=== PATIENT | male | born 1965 | race Two or more races ===

== ENCOUNTER 2017-04-04 16:08 | Emergency (ER) | payer OTHER ==
[~2017-04-04] VITALS: Ht 175.3 cm; Wt 87.1 kg
--- NOTE | 2017-04-04 16:28 | EKG ---
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
--- NOTE | 2017-04-04 16:31 | ED.ADGEN ---
Adult General Chief Complaint Chief Complaint: OTHER COMPLAINTS HPI HPI Patient is a 51 year old man, history of type 2 diabetes mellitus, controlled with oral euglycemic's, which which has been treated this way for about 20 years , has a history of neuropathy in his feet, denies any history of known heart disease, who presents the emergency department with a report of an abnormal ECG and some dizziness at his primary care provider's office. Patient was being seen in the office for a routine checkup, states that he had an EKG were performed that was abnormal, but states when he stood up from the table he had a few moments of dizziness, but denies any other episodes of dizziness, no vertiginous symptoms, no near syncope, also reports no chest pain or shortness breath. He states that he is able to go up but a flight of stairs or so without any difficulty, states that when he "exerts myself really hard" he does become short of breath but states "I am out of shape". Patient denies any swelling extremities, any recent travel or surgery, history of DVT, any missed doses of medication medication changes, states he does chew tobacco but denies any drug or alcohol use. No injuries, denies any symptoms presently. 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 He has a strong family history of cardiac disease, states his father of a heart attack at age 55. Heart disease also present in his mother and grandmother, but they both had other medical problems as well. He just has limited information regarding his father and his father's side of the family. Patient's primary care provider is Dr. Soliz, who did contact the emergency department to inform me of the patient's arrival. Review of Systems Review of Systems Constitutional: Denies fever or chills. Episode of dizziness when standing up after lying flat for about 20 minutes. Eyes: Denies change in visual acuity. [] HENT: Denies nasal congestion or sore throat. [] Respiratory: Denies cough or shortness of breath. [] Cardiovascular: Denies chest pain or edema. [] GI: Denies abdominal pain, nausea, vomiting, bloody stools or diarrhea. [] : Denies dysuria. [] Musculoskeletal: Denies back pain or joint pain. [] Integument: Denies rash. [] Neurologic: Denies headache, focal weakness or sensory changes. [] Endocrine: Denies polyuria or polydipsia. [] Lymphatic: Denies swollen glands. [] Psychiatric: Denies depression or anxiety. [] Allergies Allergies Allergies Coded Allergies Type Severity Reaction Last Updated Verified bee venom protein (honey bee) Allergy Severe anaphylaxis 04/04/17 Yes Physical Exam Physical Exam Constitutional: Well developed, well nourished, no acute distress, non-toxic appearance. [] HENT: Normocephalic, atraumatic, bilateral external ears normal, oropharynx moist, no oral exudates, nose normal. [] Eyes: PERRLA, EOMI, conjunctiva normal, no discharge. [] Neck: Normal range of motion, no tenderness, supple, no stridor. [] Cardiovascular:Heart rate regular rhythm, no murmur, S1, S2, no rubs or gallops. [] Lungs & Thorax: Bilateral breath sounds clear to auscultation, no wheezing, rhonchi, rales. No chest wall tenderness or crepitus. [] Abdomen: Bowel sounds normal, soft, no tenderness, no rebound, rigidity, no guarding, no masses, no pulsatile masses. [] Skin: Warm, dry, no erythema, no rash. [] Back: No tenderness, no CVA tenderness. [] Extremities: No tenderness, no cyanosis, no clubbing, ROM intact, no edema. Negative Homans sign. [] Neurologic: Alert and oriented X 3, normal motor function, normal sensory function, no focal deficits noted. [] Psychologic: Affect normal, judgement normal, mood normal. [] Current Patient Data Vital Signs Vital Signs Date Time Temp Pulse Resp B/P (MAP) Pulse Ox O2 Delivery O2 Flow Rate FiO2 04/04/17 18:03 85 20 120/83 (95) 95 Room Air 04/04/17 16:20 99.2 99.2 Lab Values Laboratory Tests Test 04/04/17 16:28 04/04/17 17:08 White Blood Count 7.7 x10^3/uL (4.0-11.0) Red Blood Count 5.36 x10^6/uL (4.30-5.70) Hemoglobin 16.1 g/dL (13.0-17.5) Hematocrit 47.6 % (39.0-53.0) Mean Corpuscular Volume 89 fL (79-100) Mean Corpuscular Hemoglobin 30 pg (25-35) Mean Corpuscular Hemoglobin Concent 34 g/dL (31-37) Red Cell Distribution Width 13.0 % (11.5-14.5) Platelet Count 230 x10^3/uL (140-400) Neutrophils (%) (Auto) 63 % (31-73) Lymphocytes (%) (Auto) 29 % (24-48) Monocytes (%) (Auto) 7 % (0-9) Eosinophils (%) (Auto) 1 % (0-3) Basophils (%) (Auto) 1 % (0-3) Neutrophils # (Auto) 4.8 x10^3uL (1.8-7.7) Lymphocytes # (Auto) 2.2 x10^3/uL (1.0-4.8) Monocytes # (Auto) 0.6 x10^3/uL (0.0-1.1) Eosinophils # (Auto) 0.1 x10^3/uL (0.0-0.7) Basophils # (Auto) 0.1 x10^3/uL (0.0-0.2) Sodium Level 142 mmol/L (136-145) Potassium Level 3.9 mmol/L (3.5-5.1) Chloride Level 104 mmol/L (98-107) Carbon Dioxide Level 28 mmol/L (21-32) Anion Gap 10 (6-14) Blood Urea Nitrogen 16 mg/dL (8-26) Creatinine 1.0 mg/dL (0.7-1.3) Estimated GFR (Cockcroft-Gault) 79.4 Glucose Level 114 mg/dL (70-99) H Calcium Level 9.4 mg/dL (8.5-10.1) Total Bilirubin 0.4 mg/dL (0.2-1.0) Direct Bilirubin 0.1 mg/dL (0.0-0.2) Aspartate Amino Transferase (AST) 23 U/L (15-37) Alanine Aminotransferase (ALT) 24 U/L (16-63) Alkaline Phosphatase 83 U/L (46-116) Troponin I Quantitative < 0.017 ng/mL (0.000-0.055) OH-Xfm-O-Type Natriuretic Peptide 26 pg/mL (0-124) Total Protein 8.4 g/dL (6.4-8.2) H Albumin 4.3 g/dL (3.4-5.0) Lipase 171 U/L (73-393) Urine Color Yellow Urine Clarity Clear Urine pH 5.0 Urine Specific [place] >=1.030 Urine Protein Negative mg/dL (NEG-TRACE) Urine Glucose (UA) >=1000 mg/dL (NEG) Urine Ketones (Stick) Negative mg/dL (NEG) Urine Blood Negative (NEG) Urine Nitrite Negative (NEG) Urine Bilirubin Negative (NEG) Urine Urobilinogen Dipstick 0.2 mg/dL (0.2 mg/dL) Urine Leukocyte Esterase Negative (NEG) Urine RBC 0 /HPF (0-2) Urine WBC Occ /HPF (0-4) Urine Squamous Epithelial Cells Occ /LPF Urine Bacteria 0 /HPF (0-FEW) Urine Mucus Slight /LPF Urine Opiates Screen Neg (NEG) Urine Methadone Screen Neg (NEG) Urine Barbiturates Neg (NEG) Urine Phencyclidine Screen Neg (NEG) Urine Amphetamine/Methamphetamine Neg (NEG) Urine Benzodiazepines Screen Neg (NEG) Urine Cocaine Screen Neg (NEG) Urine Cannabinoids Screen Neg (NEG) Urine Ethyl Alcohol Neg (NEG) Laboratory Tests 04/04/17 16:28 Laboratory Tests 04/04/17 16:28 EKG EKG ECG: Performed at primary care provider's office: 1555: Sinus rhythm, heart rate 89 bpm, left axis deviation, bifascicular block noted, patient with T-wave inversions noted in the septal leads, QTc of 432, GA of 194, QRS of 138, abnormal ECG, does not meet STEMI criteria. As interpreted by me. No prior for comparison. EC: Sinus rhythm, heart rate 85 beats minute, left axis deviation, with left anterior fascicular block, ventricular block, contour normality is noted in the anterior septal leads as stated previously, no ST elevation, abnormal ECG , does not meet STEMI criteria. As interpreted by me. Radiology/Procedures Radiology/Procedures [][facility] [address] [place] [address] IMAGING REPORT Signed PATIENT: CASSIDY RASHEED ACCOUNT: [id number] : 1965 LOCATION: ER AGE: 51 SEX: M EXAM STATUS: REG ER ORD. PHYSICIAN: WENDY DORADO DO REASON: Dizziness PROCEDURE: CHEST PA & LATERAL EXAM: CHEST 2 VIEWS History: Dizziness COMPARISON: None available. TECHNIQUE: PA and lateral chest radiographs FINDINGS: The cardiomediastinal silhouette is within normal limits. The lungs are clear bilaterally. The costophrenic sulci are clear and well demarcated bilaterally. Probable old posterior lateral left sixth rib fracture. IMPRESSION: 1. No acute cardiac pulmonary findings. 2. Probable old posterolateral left sixth rib fracture. DICTATED and SIGNED BY: DARI CRANE MD DATE: 04/04/171653 CC: WENDY DORADO DO; PALLAVI SOLIZ MD ~ Course & Med Decision Making Course & Med Decision Making Pertinent Labs and Imaging studies reviewed. (See chart for details) Patient is well-appearing, denies any chest pain, shortness breath, or equivalent type symptoms. Initial ECG reveals bifascicular block, abnormal, repeat ECG performed 2 hours later, reveals no changes. Patient hasn't developed any symptoms in the ED. Troponin is negative, other laboratory studies are unremarkable. I did discuss these findings with Dr. Hendrickson of cardiology, as patient does have a strong family history and history of diabetes , he recommends a prompt follow-up in the outpatient setting, with a stress test performed in his office, however agrees that there is no indication based on the patient's presentation and evaluation in the ED that would warrant inpatient admission at this time. I did discuss this with patient and family at bedside, patient remains asymptomatic, and is agreeable with the plan to follow- up with a phone call tomorrow morning to Dr. Hendrickson's office to schedule prompt outpatient evaluation. We did discuss concerning symptoms that would prompt return to the emergency department, and plan for patient to restart daily baby aspirin. Patient voiced understanding and agreement with plan as stated. Patient discharged home in stable condition, with family, with plan as above. Dragon Disclaimer Dragon Disclaimer This electronic medical record was generated, in whole or in part, using a voice recognition dictation system. Departure Impression: Primary Impression: Abnormal ECG Disposition: HOME, SELF-CARE Condition: STABLE WENDY DORADO DO Apr 04, 2017 16:31
[2017-04-04] MEDS ORDERED: GLYB5TAB3 PO (16:41)
[2017-04-04] MEDS ORDERED: METF-620 PO (16:41)
[2017-04-04] MEDS ORDERED: CANA100T PO (16:41)
[2017-04-04] MEDS ORDERED: TRAZ100T12 PO (16:41)
[2017-04-04 16:45] LABS: BASO # 0.1 x10^3/uL (0.0-0.2); BASO % 1 % (0-3); EOS % 1 % (0-3); HEMATOCRIT 47.6 % (39.0-53.0); HEMOGLOBIN 16.1 g/dL (13.0-17.5); LYMPH # 2.2 x10^3/uL (1.0-4.8); LYMPH % 29 % (24-48); MEAN CORPUSCULAR HEMOGLOBIN 30 pg (25-35); MEAN CORPUSCULAR HGB CONC 34 g/dL (31-37); MEAN CORPUSCULAR VOLUME 89 fL (79-100); MONO % 7 % (0-9); NEUT % 63 % (31-73); PLATELET COUNT 230 x10^3/uL (140-400); RED BLOOD COUNT 5.36 x10^6/uL (4.30-5.70); WHITE BLOOD COUNT 7.7 x10^3/uL (4.0-11.0)
--- NOTE | 2017-04-04 16:57 | RAD ---
EXAM: CHEST 2 VIEWS History: Dizziness COMPARISON: None available. TECHNIQUE: PA and lateral chest radiographs FINDINGS: The cardiomediastinal silhouette is within normal limits. The lungs are clear bilaterally. The costophrenic sulci are clear and well demarcated bilaterally. Probable old posterior lateral left sixth rib fracture. IMPRESSION: 1. No acute cardiac pulmonary findings. 2. Probable old posterolateral left sixth rib fracture.
[2017-04-04 17:12] LABS: CALCIUM 9.4 mg/dL (8.5-10.1); GFR 79.4; POTASSIUM 3.9 mmol/L (3.5-5.1)
[2017-04-04 17:18] LABS: ALBUMIN 4.3 g/dL (3.4-5.0); DIRECT BILIRUBIN 0.1 mg/dL (0.0-0.2); TOTAL BILIRUBIN 0.4 mg/dL (0.2-1.0); TOTAL PROTEIN 8.4 g/dL (6.4-8.2)
[2017-04-04 17:20] LABS: BILIRUBIN,URINE NEGATIVE (NEG); GLUCOSE,URINE >=1000 mg/dL (NEG); NITRITE,URINE NEGATIVE (NEG); PROTEIN,URINE NEGATIVE (NEG-TRACE); UROBILINOGEN,URINE 0.2 mg/dL (0.2 mg/dL)
[2017-04-04 17:25] LABS: BARBITURATES NEG (NEG); BENZODIAZEPINES NEG (NEG); CANNABINOIDS NEG (NEG); COCAINE NEG (NEG); METHADONE NEG (NEG); OPIATES NEG (NEG); PHENCYCLIDINE NEG (NEG)
[2017-04-04 17:35] LABS: BACTERIA,URINE 0 /HPF (0-FEW); RBC,URINE 0 /HPF (0-2); SQUAMOUS EPITHELIAL CELL,UR OCC /LPF; WBC,URINE OCC /HPF (0-4)
[2017-04-04 18:03] VITALS: BP 120/83
--- NOTE | 2017-04-04 18:09 | EKG ---
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
== END 2017-04-04 18:12 | disposition home or self-care (01) ==
LOC: ER 16:08
DX: R94.31 Abnormal electrocardiogram [ECG] [EKG] (principal); R42 Dizziness and giddiness; R06.02 Shortness of breath; E11.40 Type 2 diabetes mellitus with diabetic neuropathy, unspecified; Z91.030 Bee allergy status
CPT/HCPCS: 36415; 71020; 80048; 80076; 80305; 80320; 81001; 83690; 83880; 84484; 85027; 93005; G0481; 99285-25

== ENCOUNTER → 2017-04-14 | Outpatient (CLI) | payer OTHER ==
[2017-04-04 18:03] VITALS: BP 120/83
[~2017-04-14] MED LIST: CANA100T PO; GLYB5TAB3 PO; METF-620 PO; TRAZ100T12 PO
--- NOTE | 2017-04-15 13:03 | CARD ---
APPROVED REPORT EXAM: Two-dimensional and M-mode echocardiogram with Doppler and color Doppler. Other Information Quality : GoodHR: 72bpm Rhythm : NSR INDICATION Fatigue, Uncontrolled hypertension, Family hx. of LA RISK FACTORS Diabetes 2D DIMENSIONS RVDd3.1 (2.9-3.5cm)Left Atrium(2D)3.4 (1.6-4.0cm) IVSd0.7 (0.7-1.1cm)Aortic Root(2D)4.0 (2.0-3.7cm) LVDd5.0 (3.9-5.9cm)LVOT Diameter2.5 (1.8-2.4cm) PWd0.8 (0.7-1.1cm)LVDs3.4 (2.5-4.0cm) FS (%) 30.8 %SV67.2 ml LVEF(%)50.0 (>50%) Aortic Valve AoV Peak Gunner.86.7cm/sAoV VTI19.2cm AO Peak GR.3.0mmHgLVOT Peak Gunner.75.5cm/s AO Mean GR.2mmHgAVA (VMAX)4.42cm2 Mitral Valve MV E Quligkwq40.4cm/sMV E Peak Gr.1mmHg MV DECEL [id number] A Ybjltqle25.3cm/s MV E Mean Gr.1mmHgE/A Ratio1.2 MV A [id number] Pulmonary Valve PV Peak Lliodpgm19.9cm/s Tricuspid Valve TR P. Mpnxwckd894qq/sTR Peak Gr.18mmHg Pulmonary Vein S1 Ltifntnt94.2cm/sD2 Fcbwsxix71.9cm/s PVa [id number] LEFT VENTRICLE The left ventricle is mildly dilated There is normal left ventricular wall thickness. The left ventri cular systolic function is low normal The Ejection Fraction is 50%. There is normal LV segmental wall motion. Transmitral Doppler flow pattern is Grade I-abnormal relaxation pattern. RIGHT VENTRICLE The right ventricle is normal size. There is normal right ventricular wall thickness. The right ventr icular systolic function is normal. ATRIA The left atrium size is normal. The right atrium size is normal. The interatrial septum is intact wit h no evidence for an atrial septal defect or patent foramen ovale as noted on 2-D or Doppler imaging. AORTIC VALVE The aortic valve is normal in structure and function. The aortic valve is trileaflet. Doppler and Col or Flow revealed no significant aortic regurgitation. There is no significant aortic valvular stenosi s. MITRAL VALVE The mitral valve is normal in structure and function. There is no evidence of mitral valve prolapse. There is no mitral valve stenosis. Doppler and Color Flow revealed no mitral valve regurgitation note d. TRICUSPID VALVE Doppler and Color Flow revealed trace tricuspid regurgitation. The pulmonary artery systolic pressure is estimated at 21 mmHg. There is no pulmonary hypertension. PULMONIC VALVE Doppler and Color Flow revealed mild pulmonic valvular regurgitation. There is no pulmonic valvular s tenosis. GREAT VESSELS The aortic root is mildly enlarged. The ascending aorta is mildly dilated. The pulmonary artery is no rmal. The IVC is normal in size and collapses >50% with inspiration. PERICARDIAL EFFUSION There is no evidence of significant pericardial effusion. Critical Notification Critical Value: No <Conclusion> Transmitral Doppler flow pattern is Grade I-abnormal relaxation pattern. The left atrium size is normal. The right atrium size is normal. The aortic valve is normal in structure and function. The aortic valve is trileaflet. The mitral valve is normal in structure and function. Doppler and Color Flow revealed trace tricuspid regurgitation. The pulmonary artery systolic pressure is estimated at 21 mmHg. There is no pulmonary hypertension. Doppler and Color Flow revealed mild pulmonic valvular regurgitation. The ascending aorta is mildly dilated. The aortic root is mildly enlarged. There is no evidence of significant pericardial effusion. The left ventricle is mildly dilated The left ventricular systolic function is low normal The Ejection Fraction is 50%.
== END | disposition home or self-care (01) ==
LOC: ECHO 08:11
PROVIDERS: ATTEND Internal Medicine Cardiovascular Disease
DX: I07.1 Rheumatic tricuspid insufficiency (principal); R53.83 Other fatigue; Z82.49 Family history of ischemic heart disease and other diseases of the circulatory system
CPT/HCPCS: 93306

== ENCOUNTER → 2018-08-09 | Outpatient (CLI) | payer OTHER ==
[~2018-08-09] MED LIST changes: -METF-620 PO; +METF10007 PO; +TRAZ-86 PO; -TRAZ100T12 PO
--- NOTE | 2018-08-09 10:54 | RAD ---
MR of the left shoulder Indication: Left shoulder pain after a fall 6 months ago. Technique: Standard multiplanar sequences are obtained. Findings: Artifact: No significant image degradation. Acromioclavicular joint: Mildly degenerative. Rotator cuff: * Supraspinatus-infraspinatus tendon: Diffuse thickening with increased signal compatible with tendinosis. There is some low signal, likely indicative of calcium hydroxyapatite. Mild undersurface irregularity and bursal surface irregularity compatible with fraying, but no measurable fluid gap or rupture. * Subscapularis tendon: Partial tear * Muscle bulk: Severe atrophy/fatty infiltration of the teres minor muscle, often associated with chronic denervation or quadrilateral space syndrome. Supraspinatus and infraspinatus muscles are intact. * Subacromial subdeltoid bursa: Trace effusion. Fluid: Trace glenohumeral effusion. Glenohumeral cartilage: No acute defect or advanced DJD. Labrum: Tear of the superior labrum Biceps tendon: Tendinosis, no complete rupture but there is partial interstitial tearing. Bones: No lesion or acute fracture. Soft tissue: No acute findings. Impression: 1. Generalized rotator cuff tendinosis. Partial subscapularis tendon tear. Mild surface irregularity of the supraspinatus tendon but no measurable tear or rupture. 2. Superior labral tear. 3. Biceps tendinosis with partial interstitial tearing. 4. Severe fatty infiltration/atrophy of the teres minor muscle, can be seen with chronic denervation or chronic quadrilateral space syndrome. Electronically signed by: Artis Torres MD (08/09/2018 10:51 AM) [facility]
== END | disposition home or self-care (01) ==
LOC: MRI 06:45
PROVIDERS: ATTEND Orthopaedic Surgery Sports Medicine
DX: S46.012A Strain of muscle(s) and tendon(s) of the rotator cuff of left shoulder, initial encounter (principal); S43.432A Superior glenoid labrum lesion of left shoulder, initial encounter; X58.XXXA Exposure to other specified factors, initial encounter; Y93.89 Activity, other specified; Y92.89 Other specified places as the place of occurrence of the external cause; Y99.8 Other external cause status
CPT/HCPCS: 73221

== ENCOUNTER 2018-09-06 09:12 | Day surgery (SDC) | payer OTHER ==
[~2018-09-06] VITALS: Ht 177.8 cm; Wt 87.1 kg
[~2018-09-06 09:12] MED LIST changes: +ASPI-630 PO; +ATOR10TA60 PO; +DULA0.75 SQ; +IV RINGERS,LACTATED 1000ML 1,000 ML IV SCH; +LIDOCAINE 1% PF 2 ML VIAL. ID PRN; +LOSA25TA5 PO; +METO-239 PO; +ONDANSETRON PF 4 MG/2 ML VIAL. IV PRN; +PROCHLORPERAZINE 10 MG/2 ML VIAL. IV PRN; +ROPIVacaine 0.5% PF 20 ML VIAL. ONE; +fentaNYL PF VIAL 100 MCG/2 ML VIAL IV PRN
[2018-09-06] MEDS ORDERED: PROPOFOL 20 ML IV ONE (09:17)
[2018-09-06] MEDS ORDERED: ROCURONIUM 50 MG/5 ML VIAL. ONE (09:17)
[2018-09-06] MEDS ORDERED: fentaNYL PF VIAL 100 MCG/2 ML VIAL ONE ×3 (09:17→14:03)
[2018-09-06] MEDS ORDERED: LIDOCAINE 2% PF Vial for OR 5 ML VIAL. ONE (09:17)
[2018-09-06] MEDS ORDERED: DEXAMETHASONE SOD PHOS 20 MG/5 ML VIAL. ONE (11:29)
[2018-09-06] MEDS ORDERED: DESFLURANE 61 TO 120 MINUTES IH ONE (11:29)
[2018-09-06] MEDS ORDERED: EPINEPHrine VIAL 30 MG/30 ML VIAL ONE (11:38)
[2018-09-06] MEDS ORDERED: LIDOCAINE 1% PF 30 ML VIAL. ONE (11:38)
[2018-09-06] MEDS ORDERED: BUPIVACAINE MPF 0.5% 30 ML VIAL. ONE (11:39)
[2018-09-06] MEDS ORDERED: GLYCOPYRROLATE 1 MG/5 ML VIAL. ONE (11:56)
[2018-09-06] MEDS ORDERED: NEOSTIGMINE METHYLSULFATE 5 MG/5 ML SYRINGE. ONE (11:56)
[2018-09-06] MEDS ORDERED: ONDANSETRON PF 4 MG/2 ML VIAL. ONE (11:56)
[2018-09-06] MEDS ORDERED: PROCHLORPERAZINE 10 MG/2 ML VIAL. ONE (13:15)
[2018-09-06] MEDS: fentaNYL PF VIAL 100 MCG/2 ML VIAL IV PRN ×2 (13:20→13:29)
[2018-09-06] MEDS ORDERED: MEPERIDINE PF 25 MG/ML VIAL. ONE (13:20)
--- NOTE | 2018-09-06 13:24 | DISCH ---
DISCHARGE INSTRUCTIONS Condition on Discharge Condition on Discharge: Stable Activity After Discharge Activity Instructions for Disc: Other ROM activity Other activity instructions: arm to remain in sling Bathing Instructions: Shower-keep dressing dry Weight Bearing Status after Di: Non weight bearing Diet after Discharge Diet after Discharge: Regular Wound Incision Care Wound/Incision Care: Ice to area for comfort, Keep wound/cast CDI, Change dressing Other wound/incision instructi: ok to change dressing in 2 days Contacting the DRGhazal after DC Call your doctor for: Concerns you may have Follow-Up Follow up with: Melonie in 2 wks ESME BA II, MD Sep 06, 2018 13:24
[2018-09-06] MEDS: MEPERIDINE PF 25 MG/ML VIAL. IV PRN ×2 (13:30→13:41)
--- NOTE | 2018-09-06 13:31 | PDOC4 ---
Operative Note Operative Note Date of procedure: 09/06/2018 Surgeon: Benjamin Ba Electric Meter Tester: Dipti Vazquez, certified master safe technician Preoperative diagnosis: #1 left shoulder biceps tendinitis #2 left shoulder labral tear #3 left shoulder rotator cuff tendinitis Postoperative diagnosis: Same Procedures performed: #1 arthroscopic left shoulder labral repair #2 open subpectoral biceps tenodesis Anesthesia: Gen. plus regional nerve block Blood loss: 10 mL Findings: Intact rotator cuff. Superior labral tear with biceps fraying Intact glenoid and humeral cartilage No loose bodies Components inserted: Gunter and nephew suturefix anchors for labrum and biceps tenodesis Complications none Reason for procedure: Patient is very pleasant 53-year-old gentleman who presented to my outpatient orthopedic surgery clinic with complaints of shoulder pain and dysfunction. He is having difficulty with his ADLs and work. Clinical and radiographic examination including MRI were reviewed and consistent with the above preoperative diagnoses. We had a discussion of the risks, benefits, and alternatives to the above surgery and he elected to proceed. Description of procedure: Patient was greeted in the preoperative holding area where the correct extremity was verified and marked. He had a regional nerve block placed by the anesthesiology team was brought back to the operating room, his antibiotics were started as he was brought back. Once in the operative room , he was transferred gently supine to the operative room table and secured the bed with all pressure points padded after being sat up in a beachchair position maintaining his C-spine in neutral position and using a large pillow under his legs. Left upper extremity and shoulder girdle were prepped and draped in our usual sterile fashion and we conducted our standard preoperative timeout. Ioban at the periphery of the drapes was used. I then palpated and marked surface anatomy and used a spinal needle to localize a posterior superior portal and incised skin in accordance with this. Blunt arthroscopic trocar was introduced into the glenohumeral joint followed by the camera. Spinal needle was used to localize an anterosuperior portal and this hole was dilated. After this, I conducted my diagnostic arthroscopy with the above-noted findings. Given the large amount of pathology involving his superior labrum and biceps tendon I removed the arthroscopic instrumentation and palpated for the lower border of his pectoralis major at his axilla and made an incision centered over this vertically. I then dissected subcutaneous tissue with Metzenbaums and used electrocautery for hemostasis. I bluntly dissected underneath pectoralis major tendon and placed a 90 retractor over his proximal humerus. I palpated for the biceps tendon. I used an [place] inferiorly. I then exposed the biceps tendon and clamped it proximal to her I wanted to place my suture anchor. After this, I placed my suture anchor and then shuttled limbs through in a lasso type configuration and tied these down using arthroscopic knot-tying techniques area and then cut the tendon between the hemostat and sutures. I then repositioned the arm and reintroduced the camera into the glenohumeral joint. I then released the biceps tendon off of the superior labrum with Metzenbaum scissors and delivered it from my axillary incision. He had a large amount of fraying and split in the tendon segment that are removed. I then debrided the stump of the biceps tendon. I then debrided the labrum and noted that he had the labral tear so I roughened up the bone and placed a suture anchor and used a spectrum to pass a suture limbs through and around the labrum. I created an anterolateral inferior portal for suture management. I then tied down the labrum securely with arthroscopic knot-tying techniques, it was stable to probing. I then passed a PDS suture through the rotator cuff tendon corresponding to an area of tendinitis and tendinosis on MRI. I then repositioned the camera into the subacromial space and performed a bursectomy with shaver. I inspected the area where my PDS suture was at the subacromial space. There is no pathology. I was not able to violate the substance of the tendon with a blunt trocar. I then removed all excess arthroscopic fluid and instrumentation. The portals were closed with simple interrupted 3-0 nylon. Inverted interrupted 20 followed by 4-0 Monocryl in a subcuticular fashion were used to close the axillary incision. Steri-Strips were applied after the arm and shoulder were cleansed and dried followed by a bulky dressing. Left upper extremity was then placed into an abduction pillow sling. He was laid supine and transferred gently supine to the recovery room cart. All counts correct 2 prior to wound closure. No complications. He was taken to the PACU in a stable and extubated condition. Postoperative plan is to discharge him home, nonweightbearing, sling use. We'll get him started on physical therapy. I'll see him back in 2 weeks, sooner should a problem arise BENJAMIN BA II, MD Sep 06, 2018 13:31
[2018-09-06] MEDS ORDERED: HYDROmorphone 2 MG/ML VIAL ONE (13:32)
[2018-09-06] MEDS: HYDROmorphone 2 MG/ML VIAL IV PRN ×4 (13:42→14:18)
[2018-09-06] MEDS ORDERED: MORPHINE SULFATE 2 MG/ML VIAL. ONE (13:50)
[2018-09-06] MEDS: MORPHINE SULFATE 2 MG/ML VIAL. IV PRN ×2 (13:58→14:12)
[2018-09-06] MEDS ORDERED: KETOROLAC 30 MG/ML VIAL. ONE (14:00)
[2018-09-06] MEDS ORDERED: KETOROLAC 30 MG/ML VIAL. IV ONE (14:00)
[2018-09-06] MEDS ORDERED: ROPIVacaine 0.5% PF 20 ML VIAL. ONE (14:13)
[2018-09-06 15:50] VITALS: BP 122/70
== END 2018-09-06 15:50 | disposition home or self-care (01) ==
LOC: SURG 09:12
PROVIDERS: ATTEND Orthopaedic Surgery Sports Medicine
DX: M75.22 Bicipital tendinitis, left shoulder (principal); S43.492A Other sprain of left shoulder joint, initial encounter; X58.XXXA Exposure to other specified factors, initial encounter; Y93.89 Activity, other specified; Y92.89 Other specified places as the place of occurrence of the external cause; Y99.8 Other external cause status; M75.32 Calcific tendinitis of left shoulder; E78.00 Pure hypercholesterolemia, unspecified; I10 Essential (primary) hypertension; E66.9 Obesity, unspecified; E11.9 Type 2 diabetes mellitus without complications; Z79.899 Other long term (current) drug therapy; Z79.82 Long term (current) use of aspirin; Z98.52 Vasectomy status; Z72.89 Other problems related to lifestyle
CPT/HCPCS: 23430; 29806; 82962; A7015; C1713; C1782; C1876; J0171; J0690; J0780; J1100; J1170; J1885; J2001; J2175; J2270; J2405; J2704; J2710; J2795; J3010; J3490; J7120

== ENCOUNTER 2018-11-27 06:01 | Day surgery (SDC) | payer OTHER ==
[~2018-11-27 06:01] MED LIST changes: -IV RINGERS,LACTATED 1000ML 1,000 ML IV SCH; -LIDOCAINE 1% PF 2 ML VIAL. ID PRN; -LOSA25TA5 PO; +LOSA25TA54 PO; -ONDANSETRON PF 4 MG/2 ML VIAL. IV PRN; +OXYC1TAB15 PO; -PROCHLORPERAZINE 10 MG/2 ML VIAL. IV PRN; -ROPIVacaine 0.5% PF 20 ML VIAL. ONE; -fentaNYL PF VIAL 100 MCG/2 ML VIAL IV PRN
[2018-11-27] MEDS ORDERED: MORPHINE SULFATE 4 MG/ML VIAL. IV PRN (07:00)
[2018-11-27] MEDS ORDERED: IV RINGERS,LACTATED 1000ML 1,000 ML IV SCH (07:00)
[2018-11-27] MEDS ORDERED: fentaNYL PF VIAL 100 MCG/2 ML VIAL IV PRN ×2 (07:00)
[2018-11-27] MEDS ORDERED: ONDANSETRON PF 4 MG/2 ML VIAL. IV PRN (07:00)
[2018-11-27] MEDS ORDERED: HYDROmorphone 2 MG/ML VIAL IV PRN (07:00)
[2018-11-27] MEDS ORDERED: PROCHLORPERAZINE 10 MG/2 ML VIAL. IV PRN (07:00)
[2018-11-27] MEDS ORDERED: LIDOCAINE 1% PF 2 ML VIAL. ID PRN (07:00)
[2018-11-27] MEDS ORDERED: PROPOFOL 20 ML IV ONE (07:04)
[2018-11-27] MEDS ORDERED: MIDAZOLAM HCL/PF 2 MG/2 ML VIAL. ONE (07:04)
[2018-11-27] MEDS ORDERED: ROPIVacaine 0.5% PF 20 ML VIAL. ONE (07:17)
--- NOTE | 2018-11-27 07:49 | DISCH ---
DISCHARGE INSTRUCTIONS Condition on Discharge Condition on Discharge: Stable Activity After Discharge Activity Instructions for Disc: Other ROM activity Other activity instructions: AAROM at L shoulder, use sling prn Bathing Instructions: Shower-keep dressing dry Weight Bearing Status after Di: Non weight bearing Diet after Discharge Diet after Discharge: Regular Wound Incision Care Wound/Incision Care: Ice to area for comfort, Keep wound/cast CDI, Change dressing Contacting the DR. after DC Call your doctor for: Concerns you may have Follow-Up Follow up with: Melonie in 2 wks Follow Up With: PT tomorrow ESME BA II, MD Nov 27, 2018 07:49
--- NOTE | 2018-11-27 07:56 | PDOC4 ---
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 plus regional nerve block Procedure performed: Closed manipulation left shoulder Complications: None Blood loss: 0 Findings: Improved range of motion as per below. Reason for procedure: Patient is a 53-year-old gentleman who underwent left shoulder arthroscopic rotator cuff repair and open subpectoral biceps tenodesis with myself. He plateaued in terms of regaining his range of motion in his shoulder and has not made progress with therapy. We discussed the above procedure and he wished to proceed. Description of procedure: Patient was greeted in the preoperative holding area where the correct extremity was verified and marked. He underwent placement of a regional nerve block by the anesthesiology team. He was then administered propofol after we conducted our standard preoperative timeout. After adequate relaxation, examination under anesthesia demonstrated range of motion, forward elevation to 90, external rotation to 10, abduction to 80. I then performed a closed reduction maneuver and forward elevation using a short lever arm and was able to achieve a gratifying release. After this, I performed gentle external rotation as well as abduction. I repeated these maneuvers twice more. Final range of motion passively was 150 forward elevation, 90 of abduction, 20 of external rotation. Patient was awakened from sedation. Surgery was well tolerated. At the conclusion, he was awakened and recovered in the PACU. He was placed into a simple sling. He was given range of motion instructions, working on active assisted 4 elevation is tolerated today. We will discharge him home, he will start physical therapy tomorrow. BENJAMIN BA II, MD Nov 27, 2018 07:56
[2018-11-27 08:30] VITALS: BP 120/83
== END 2018-11-27 08:52 | disposition home or self-care (01) ==
LOC: SURG 06:01
PROVIDERS: ATTEND Orthopaedic Surgery Sports Medicine
DX: M24.612 Ankylosis, left shoulder (principal); I10 Essential (primary) hypertension; E11.9 Type 2 diabetes mellitus without complications; E78.1 Pure hyperglyceridemia; Z98.52 Vasectomy status; Z83.3 Family history of diabetes mellitus; Z84.1 Family history of disorders of kidney and ureter; Z82.49 Family history of ischemic heart disease and other diseases of the circulatory system; Z79.899 Other long term (current) drug therapy; Z79.84 Long term (current) use of oral hypoglycemic drugs; Z98.890 Other specified postprocedural states; Z91.030 Bee allergy status
CPT/HCPCS: 23700; 82962; J2250; J2704; J2795; J3010

== ENCOUNTER → 2020-01-25 | Outpatient (CLI) | payer OTHER ==
[~2020-01-25] MED LIST changes: +TRAZ-123 PO; -TRAZ-86 PO
[2020-01-25 08:41] LABS: BASO % 1 % (0-3); EOS # 0.1 x10^3/uL (0.0-0.7); EOS % 2 % (0-3); HEMATOCRIT 45.2 % (39.0-53.0); HEMOGLOBIN 15.8 g/dL (13.0-17.5); LYMPH # 2.2 x10^3/uL (1.0-4.8); LYMPH % 38 % (24-48); MEAN CORPUSCULAR HEMOGLOBIN 31 pg (25-35); MEAN CORPUSCULAR HGB CONC 35 g/dL (31-37); MEAN CORPUSCULAR VOLUME 88 fL (79-100); MONO # 0.5 x10^3/uL (0.0-1.1); MONO % 9 % (0-9); NEUT # 2.9 x10^3/uL (1.8-7.7); NEUT % 50 % (31-73); PLATELET COUNT 219 x10^3/uL (140-400); RED BLOOD COUNT 5.12 x10^6/uL (4.30-5.70); RED CELL DISTRIBUTION WIDTH 12.8 % (11.5-14.5); WHITE BLOOD COUNT 5.8 x10^3/uL (4.0-11.0)
[2020-01-25 08:58] LABS: ALBUMIN 3.8 g/dL (3.4-5.0); ALBUMIN/GLOBULIN RATIO 1.2 (1.0-1.7); CALCIUM 8.7 mg/dL (8.5-10.1); GFR 78.5; POTASSIUM 4.2 mmol/L (3.5-5.1); TOTAL BILIRUBIN 0.5 mg/dL (0.2-1.0); TOTAL PROTEIN 7.1 g/dL (6.4-8.2)
[2020-01-25 09:02] LABS: CHOLESTEROL/HDL RATIO 4.2
[2020-01-26 00:08] LABS: HEMOGLOBIN A1C 9.7 % (4.8-5.6)
== END ==
LOC: LAB 08:16
PROVIDERS: ATTEND Family Medicine
DX: Z12.5 Encounter for screening for malignant neoplasm of prostate (principal); Z12.11 Encounter for screening for malignant neoplasm of colon; E11.65 Type 2 diabetes mellitus with hyperglycemia; I10 Essential (primary) hypertension; E78.2 Mixed hyperlipidemia
CPT/HCPCS: 36415; 80053; 80061; 83036; 85025; G0103

== ENCOUNTER → 2020-04-24 | Outpatient (CLI) | payer OTHER ==
[2020-04-24 09:01] LABS: CHOLESTEROL/HDL RATIO 4.1
[2020-04-25 02:08] LABS: HEMOGLOBIN A1C 9.3 % (4.8-5.6)
== END | disposition home or self-care (01) ==
LOC: LAB 08:13
PROVIDERS: ATTEND Family Medicine
DX: E11.65 Type 2 diabetes mellitus with hyperglycemia (principal); E78.2 Mixed hyperlipidemia
CPT/HCPCS: 36415; 80061; 83036; 84460

== ENCOUNTER → 2020-07-21 | Outpatient (CLI) | payer OTHER ==
[2020-07-22 01:08] LABS: HEMOGLOBIN A1C 8.1 % (4.8-5.6)
== END | disposition home or self-care (01) ==
LOC: LAB 07:52
PROVIDERS: ATTEND Family Medicine
DX: E11.65 Type 2 diabetes mellitus with hyperglycemia (principal)
CPT/HCPCS: 36415; 83036

== ENCOUNTER → 2020-10-20 | Outpatient (CLI) | payer OTHER ==
[2020-10-21 01:17] LABS: HEMOGLOBIN A1C 8.3 % (4.8-5.6)
== END ==
LOC: LAB 08:24
PROVIDERS: ATTEND Family Medicine
DX: E11.44 Type 2 diabetes mellitus with diabetic amyotrophy (principal)
CPT/HCPCS: 36415; 83036

== ENCOUNTER → 2021-01-26 | Outpatient (CLI) | payer OTHER ==
[2021-01-26 08:07] LABS: BASO # 0.1 x10^3/uL (0.0-0.2); BASO % 1 % (0-3); EOS # 0.1 x10^3/uL (0.0-0.7); EOS % 2 % (0-3); HEMATOCRIT 44.1 % (39.0-53.0); LYMPH # 2.1 x10^3/uL (1.0-4.8); LYMPH % 36 % (24-48); MEAN CORPUSCULAR HEMOGLOBIN 30 pg (25-35); MEAN CORPUSCULAR HGB CONC 34 g/dL (31-37); MEAN CORPUSCULAR VOLUME 89 fL (79-100); MONO # 0.5 x10^3/uL (0.0-1.1); MONO % 9 % (0-9); NEUT # 3.1 x10^3/uL (1.8-7.7); NEUT % 52 % (31-73); PLATELET COUNT 236 x10^3/uL (140-400); RED BLOOD COUNT 4.94 x10^6/uL (4.30-5.70); RED CELL DISTRIBUTION WIDTH 13.4 % (11.5-14.5); WHITE BLOOD COUNT 5.9 x10^3/uL (4.0-11.0)
[2021-01-26 09:01] LABS: ALBUMIN 3.8 g/dL (3.4-5.0); ALBUMIN/GLOBULIN RATIO 1.1 (1.0-1.7); CALCIUM 8.8 mg/dL (8.5-10.1); CREATININE 0.9 mg/dL (0.7-1.3); GFR 88.3; POTASSIUM 4.7 mmol/L (3.5-5.1); TOTAL BILIRUBIN 0.4 mg/dL (0.2-1.0); TOTAL PROTEIN 7.2 g/dL (6.4-8.2)
[2021-01-26 09:03] LABS: CHOLESTEROL/HDL RATIO 3.2
== END ==
LOC: LAB 07:36
PROVIDERS: ATTEND Family Medicine
DX: Z12.5 Encounter for screening for malignant neoplasm of prostate (principal); E11.65 Type 2 diabetes mellitus with hyperglycemia; E78.2 Mixed hyperlipidemia; I10 Essential (primary) hypertension
CPT/HCPCS: 36415; 80053; 80061; 83036; 84153; 85025; G0103

== ENCOUNTER → 2021-05-22 | Outpatient (CLI) | payer OTHER ==
[2021-05-22 23:22] LABS: HEMOGLOBIN A1C 7.7 % (4.8-5.6)
== END ==
LOC: LAB 07:47
PROVIDERS: ATTEND Family Medicine
DX: E11.65 Type 2 diabetes mellitus with hyperglycemia (principal)
CPT/HCPCS: 36415; 83036

== ENCOUNTER → 2021-09-21 | Outpatient (CLI) | payer OTHER ==
[2021-09-21 09:14] LABS: CALCIUM 8.9 mg/dL (8.5-10.1); CREATININE 0.9 mg/dL (0.7-1.3); GFR 87.9; POTASSIUM 4.6 mmol/L (3.5-5.1)
[2021-09-21 09:17] LABS: CHOLESTEROL/HDL RATIO 3.4
== END ==
LOC: LAB 08:41
PROVIDERS: ATTEND Family Medicine
DX: E11.65 Type 2 diabetes mellitus with hyperglycemia (principal); E78.1 Pure hyperglyceridemia
CPT/HCPCS: 36415; 80048; 80061; 83036